=== PATIENT | female | born 1955 | race Caucasian/White ===

== ENCOUNTER → 2016-12-02 | Outpatient (CLI) | payer OTHER | LOC: FIMAGING 13:58 | PROVIDERS: ATTEND Urology | DX: R10.9 Unspecified abdominal pain (principal); Z87.442 Personal history of urinary calculi; Z87.448 Personal history of other diseases of urinary system ==

== ENCOUNTER → 2017-03-17 | Outpatient (CLI) | payer OTHER | LOC: FIMAGING 13:19 | PROVIDERS: ATTEND Family Medicine | DX: Z12.31 Encounter for screening mammogram for malignant neoplasm of breast (principal); Z80.3 Family history of malignant neoplasm of breast | CPT/HCPCS: G0202 ==

== ENCOUNTER → 2017-10-09 | Outpatient (CLI) | payer OTHER | LOC: FIMAGING 12:42 | PROVIDERS: ATTEND Family Medicine | DX: R93.8 Abnormal findings on diagnostic imaging of other specified body structures (principal); N85.8 Other specified noninflammatory disorders of uterus ==

== ENCOUNTER 2017-11-23 06:35 | Day surgery (SDC) | payer OTHER ==
[2017-11-23] MEDS ORDERED: LIDOCAINE 1% 2 ML INJ ID PRN (06:57)
[2017-11-23] MEDS ORDERED: LR 1,000 ML IV ONE (06:57)
[2017-11-23 07:16] VITALS: PULSE 72
--- NOTE | 2017-11-23 08:32 | PDANEPAE ---
ANE History of Present Illness post menopausal bleeding ANE Past Medical History - Cardiovascular History Hx Hypertension: No Hx Arrhythmias: Yes Hx Chest Pain: No Hx Coronary Artery / Peripheral Vascular Disease: No Hx CHF / Valvular Disease: No Hx Palpitations: No Cardiovascular History Comment: PVC'S - Pulmonary History Hx COPD: No Hx Asthma/Reactive Airway Disease: No Hx Recent Upper Respiratory Infection: No Hx Oxygen in Use at Home: No Hx Sleep Apnea: Yes Sleep Apnea Screening Result - Last Documented: Positive Pulmonary History Comment: PIPE USES C-PAP INSTRUCTED TO BRING DOS. SEEING HARVESTER OPERATOR 11/16/2017 TO DETERMINE IF SHE HAS SOME ASTHMA - Neurologic History Hx Cerebrovascular Accident: No Hx Seizures: No Hx Dementia: No - Endocrine History Hx Diabetes: No Endocrine History Comment: hypothyroid - Renal History Hx Renal Disorders: Yes Renal History Comment: REMVL OF KIDNEY STONES - Liver History Hx Hepatic Disorders: No - Neurological & Psychiatric Hx Hx Neurological and Psychiatric Disorders: No - Cancer History Hx Cancer: Yes Cancer History Comment: non-hodgkins lymphoma - Congenital Disorder History Hx Congenital Disorders: No - GI History Hx Gastrointestinal Disorders: No - Other Health History Other Health History: sjogrens syndrome. LEUKOPENIA. INCREASED UTERINE BLEEDING. DEVIATED SEPTUM - Chronic Pain History Chronic Pain: No - Surgical History Prior Surgeries: LITHOTRIPSY 08/2016. parotidectomy. RT rotator cuff. pilonidal cyst. glover neuroma excision ANE Review of Systems Review of Systems: - Exercise capacity METS (RN): 4 METS ANE Patient History - Allergies Allergies/Adverse Reactions: Penicillins Allergy (Intermediate, Verified 03/02/11 09:14) Hives LACTOSE INTOL Allergy (Intermediate, Uncoded 03/02/11 09:52) BLOATING/GAS/INFLAMMATION ENVIRONMENTAL Allergy (Mild, Uncoded 03/02/11 09:14) NASAL CONGESTION - Home Medications Home Medications: Alrex PRN 11/14/17 [Last Taken 11/16/17] Bupropion HCl DAILY06 11/14/17 [Last Taken 11/22/17] Claritin HS 11/14/17 [Last Taken 11/22/17] Cyclobenzaprine HS 11/14/17 [Last Taken 11/22/17] Cymbalta 60 MG (*) DAILY06 11/14/17 [Last Taken 11/22/17] Herbal Drugs DAILY 11/14/17 [Last Taken 11/09/17] Levothyroxine DAILY06 11/14/17 [Last Taken 11/23/17 06:10] Relafen 500 mg (*) PRN 11/14/17 [Last Taken 11/02/17] Hydroxychloroquine Sulfate DAILY 11/23/17 [Last Taken 11/22/17] - NPO status NPO Since - Liquids (Date): 11/22/17 NPO Since - Liquids (Time): 22:00 NPO Since - Solids (Date): 11/22/17 NPO Since - Solids (Time): 19:00 - Smoking Hx Smoking Status: Never smoked ANE Labs/Vital Signs - Vital Signs Blood Pressure: 126/62 Heart Rate: 72 Respiratory Rate: 17 O2 Sat (%): 93 Height: 172.72 cm Weight: 90.718 kg ANE Physical Exam - Airway Neck exam: FROM Mallampati Score: Class 2 Mouth exam: normal dental/mouth exam - Pulmonary Pulmonary: no respiratory distress - Cardiovascular Cardiovascular: regular rate and rhythym - ASA Status ASA Status: II ANE Anesthesia Plan Anesthesia Plan: GA w LMA
[2017-11-23] MEDS ORDERED: PROPOFOL 200 MG/20 ML VIAL ONE ×2 (08:34)
[2017-11-23] MEDS ORDERED: fentaNYL 100 MCG/2 ML INJ ONE ×3 (08:34→09:33)
--- NOTE | 2017-11-23 08:49 | PDHPUP ---
History & Physical Update H&P update statement: This history and physical update is based on an assessment of the patient which was completed after admission or registration (within 24 hours), but prior to the surgery/procedure.
[2017-11-23] MEDS ORDERED: NALOXONE HCL 0.4 MG/ML INJ IVP PRN (09:05)
[2017-11-23] MEDS ORDERED: fentaNYL 100 MCG/2 ML INJ IVP PRN (09:05)
[2017-11-23] MEDS ORDERED: PROMETHAZINE HCL 25 MG/ML INJ IVP PRN (09:05)
[2017-11-23] MEDS ORDERED: ONDANSETRON 4 MG/2 ML VIAL IVP PRN (09:05)
[2017-11-23] MEDS ORDERED: HYDROmorphONE/DILAUDID 1 MG/ML INJ IVP PRN (09:05)
[2017-11-23] MEDS ORDERED: DEXAMETHASONE 4 MG/ML VIAL ONE (09:07)
[2017-11-23] MEDS ORDERED: ONDANSETRON 4 MG/2 ML VIAL ONE (09:08)
[2017-11-23] MEDS ORDERED: PHENYLEPHRINE HCL 100 MCG/ML SYR ONE (09:08)
--- NOTE | 2017-11-23 09:30 | POSTANESTH ---
Post Anesthetic Evaluation Cardiovascular Status: Normal, Stable Respiratory Status: Normal, Stable Level of Consciousness/Mental Status: Can Participate in Eval Pain Control: Adequate, Prn Tx Ordered Nausea/Vomiting Control: Adequate, Prn Tx Ordered Complications Possibly Related to Anesthesia: None Noted
--- NOTE | 2017-11-23 10:04 | POSTOPPROG ---
Post Op Note Date of Operation: 11/23/17 Surgeon: Zainab Mendoza Anesthesia: LMA Pre-op Diagnosis: pmb endometrial thickness Post-op Diagnosis: polyp Indication: same Procedure: h/s polypectomy Findings: polyp Inf/Abcess present in the surg proc area at time of surgery?: No EBL: Minimal
[2017-11-23 10:43] VITALS: TEMP 97.5
--- NOTE | 2017-11-23 12:24 | GOP ---
[f rep st] OPERATIVE REPORT DATE OF OPERATION: 11/23/2017 SURGEON: Zainab Mendoza MD ANESTHESIA: General with LMA. PREOPERATIVE DIAGNOSIS: 1. Postmenopausal bleeding. 2. Endometrial mass. POSTOPERATIVE DIAGNOSIS: Likely endometrial polyp. PROCEDURE PERFORMED: Hysteroscopic polypectomy. FINDINGS: There was about a 1.5-2 cm endometrial polyp arising from the posterior wall of the endome trium. Normal tubal ostia. Normal cervix. INDICATIONS: Patient is a 62-year-old who was referred by Dr. Khadijah Freed for recent episode of postmenopausal bleeding with insufficient endometrial biopsy and ultrasound that showed endometri al mass with some fluid. I recommend surgical evaluation. DESCRIPTION OF PROCEDURE: With informed consent signed, patient taken to the operating room, placed under general anesthesia, placed in a low dorsal lithotomy position, prepped and draped in the usual sterile fashion. Tenaculum placed on the anterior lip of the cervix. Cervix dilated up to 6 mm and hysteroscope placed using normal saline as the filling medium. Findings as noted above. The [employer] morcellator placed into the uterine cavity and resection of the above tissue done without complication. Once it was completely removed and hemostasis was noted, the hysteroscope was removed. The patient was placed in a supine position, awakened in the operating room and taken to [facility] recovery room in stable condition. Tolerated procedure well. COMPLICATIONS: None. /[id number]/MODL
[2017-11-23 12:42] VITALS: BP 110/61
[2017-11-23 12:48] VITALS: RESP 16; O2SAT 92
== END 2017-11-23 12:25 | disposition home or self-care (01) ==
LOC: FSGY 06:35
PROVIDERS: ATTEND Obstetrics & Gynecology Gynecology
PROC: 0UDB8ZX Extraction of Endometrium, Via Natural or Artificial Opening Endoscopic, Diagnostic (ICD-10-PCS; principal; 2017-11-23 08:30)
DX: N84.0 Polyp of corpus uteri (principal); N95.0 Postmenopausal bleeding; G47.33 Obstructive sleep apnea (adult) (pediatric); Z87.442 Personal history of urinary calculi
CPT/HCPCS: 58558; C1782; J1100; J2370; J2405; J2704; J3010

== ENCOUNTER → 2018-01-16 | Outpatient (CLI) | payer OTHER | LOC: FIMAGING 08:58 | PROVIDERS: ATTEND Internal Medicine Critical Care Medicine | DX: R06.02 Shortness of breath (principal) ==

== ENCOUNTER → 2018-08-10 | Outpatient (CLI) | payer OTHER | LOC: FIMAGING 13:37 | PROVIDERS: ATTEND Family Medicine | DX: K11.21 Acute sialoadenitis (principal); Z22.322 Carrier or suspected carrier of Methicillin resistant Staphylococcus aureus ==